=== PATIENT | male | born 1980 | race Caucasian/White ===

== ENCOUNTER 2018-10-31 09:03 | Day surgery (SDC) | payer MEDICAID ==
--- NOTE | 2018-10-24 10:28 | RADIOLOGY REPORT (SQ) ---
EXAM DESCRIPTION: CHEST PA/LATERAL COMPLETED DATE/TIME: 10/24/2018 10:16 am REASON FOR STUDY: PRE-OP COMPARISON: 04/25/2013. EXAM PARAMETERS: NUMBER OF VIEWS: two views TECHNIQUE: Digital Frontal and Lateral radiographic views of the chest acquired. RADIATION DOSE: NA LIMITATIONS: none FINDINGS: LUNGS AND PLEURA: No opacities, masses or pneumothorax. No pleural effusion. MEDIASTINUM AND HILAR STRUCTURES: No masses or contour abnormalities. HEART AND VASCULAR STRUCTURES: Heart normal size. No evidence for failure. BONES: No acute findings. HARDWARE: None in the chest. OTHER: No other significant finding. IMPRESSION: NO SIGNIFICANT RADIOGRAPHIC FINDING IN THE CHEST. TECHNICAL DOCUMENTATION: JOB ID: [id number] [employer]- All Rights Reserved Reading location - IP/workstation name: [email or web address]
[2018-10-24 10:34] LABS: BLOOD UREA NITROGEN 15 mg/dL (7-20); CALCIUM 8.7 mg/dL (8.4-10.2); GLUCOSE 162 mg/dL (75-110); POTASSIUM 3.7 mmol/L (3.6-5.0)
[2018-10-24 10:35] LABS: APPEARANCE,URINE CLEAR; BILIRUBIN,URINE NEGATIVE (NEGATIVE); COLOR,URINE YELLOW; GLUCOSE, URINE NEGATIVE (NEGATIVE); KETONES,URINE NEGATIVE (NEGATIVE); LEUKOCYTE ESTERASE,URINE NEGATIVE (NEGATIVE); NITRITE,URINE NEGATIVE (NEGATIVE); PROTEIN,URINE NEGATIVE (NEGATIVE); URINE SPECIFIC GRAVITY 1.023; UROBILINOGEN,URINE NEGATIVE mg/dL (<2.0)
[2018-10-24 10:39] LABS: ANION GAP 5 (5-19); CARBON DIOXIDE 39 mmol/L (22-30); CHLORIDE 97 mmol/L (98-107); SODIUM 140.6 mmol/L (137-145)
[2018-10-24 10:40] LABS: HEMATOCRIT 41.3 % (37.9-51.0); HEMOGLOBIN 14.1 g/dL (13.5-17.0); MEAN CORPUSCULAR HGB CONC 34.1 g/dL (32.0-36.0); MEAN CORPUSCULAR VOLUME 91 fl (80-97); PLATELET COUNT 235 10^3/uL (150-450); RED BLOOD COUNT 4.55 10^6/uL (4.35-5.55); RED CELL DISTRIBUTION WIDTH 13.2 % (11.5-14.0)
--- NOTE | 2018-10-24 13:06 | EKG REPORT ---
SEVERITY:- NORMAL ECG - SINUS RHYTHM : Confirmed by: Efrain Back MD 24-Oct-2018 13:06:02
[~2018-10-31 09:03] MED LIST: CEFAZOLIN SODIUM 2 GM in DEXTROSE 5%-WATER 100 ML IV PRN; LACTATED RINGERS 1000 ML IV PRN; LIDOCAINE 0.5% INJ-PF (5 MG/ML) 50 ML SDV SUBCUT PRN
[2018-10-31] MEDS ORDERED: ALBUTEROL SULFATE 0.083% NEB 2.5 MG/3 ML AMPUL NEB ONE ×2 (10:16→12:35)
[2018-10-31] MEDS ORDERED: GLYCOPYRROLATE 1 MG/5 ML SYRINGE ONE (11:34)
[2018-10-31] MEDS ORDERED: SUCCINYLCHOLINE CHLORIDE INJ 200 MG/10 ML VIAL ONE (11:34)
[2018-10-31] MEDS ORDERED: ONDANSETRON HCL INJ/PF 4 MG/2 ML SDV ONE ×2 (11:40→13:48)
[2018-10-31] MEDS ORDERED: FENTANYL CITRATE INJ/PF 100 MCG/2 ML AMPUL ONE (11:40)
[2018-10-31] MEDS ORDERED: MIDAZOLAM 2 MG/2 ML INJ ONE (11:40)
[2018-10-31] MEDS ORDERED: PROPOFOL INJ 200 MG/20 ML VIAL IV ONE (11:41)
[2018-10-31] MEDS ORDERED: ACETAMINOPHEN 1,000 MG/100 ML RTUPB IV ONE (11:41)
[2018-10-31] MEDS ORDERED: BUPIVACAINE HCL 0.5 % INJ/PF 30 ML SDV ONE (11:46)
[2018-10-31] MEDS ORDERED: SCOPOLAMINE HYDROBROMIDE 1.5 MG PATCH.TD72 TD ONE (12:31)
[2018-10-31] MEDS ORDERED: SCOPOLAMINE HYDROBROMIDE 1.5 MG PATCH.TD72 ONE ×2 (12:33→13:48)
[2018-10-31] MEDS ORDERED: PROMETHAZINE HCL INJ 25 MG/1 ML VIAL IV PRN ×2 (12:51)
[2018-10-31] MEDS ORDERED: OXYCODONE-ACETAMINOPHEN 5-325 MG TABLET PO PRN ×4 (12:51→13:43)
[2018-10-31] MEDS ORDERED: MEPERIDINE HCL/PF INJ 25 MG/1 ML DISP.SYRIN IV PRN (12:51)
[2018-10-31] MEDS ORDERED: FENTANYL CITRATE INJ/PF 100 MCG/2 ML AMPUL IV PRN ×3 (12:51)
[2018-10-31] MEDS ORDERED: DIPHENHYDRAMINE HCL 50 MG/ML VIAL IV PRN (12:51)
[2018-10-31] MEDS ORDERED: MORPHINE SULFATE 10 MG/ML INJ IV PRN (12:51)
--- NOTE | 2018-10-31 13:22 | Operative Report ---
Operative Report DATE OF SURGERY: 10/31/18 PREOPERATIVE DIAGNOSIS: Right knee lateral meniscus tear with para meniscal cyst POSTOPERATIVE DIAGNOSIS: Same OPERATION: Right knee arthroscopic partial lateral meniscectomy and decompression. parameniscal cyst SURGEON: TERESA CHAPPELL ANESTHESIA: GA TISSUE REMOVED OR ALTERED: meniscal shavings COMPLICATIONS: none ESTIMATED BLOOD LOSS: 10mL INTRAOPERATIVE FINDINGS: as above PROCEDURE: Patient was brought to the operating room and successfully induced and intubated in a the supine position. Once the tube was secured the right lower extremity thigh tourniquet was applied and the left lower extremity was prepped and draped in a normal surgical fashion. Timeout was done identifying the left knee has a correct site. The extremity was held elevated for a couple minutes and then tourniquet was inflated at 300 mmHg 0.5% of Marcaine was injected into the anticipated portal sites. 11 blade was used to establish the anterolateral portal. Scope was introduced and the capsule was distended with sterile saline solution. Under direct visualization the anteromedial portal sites was established first by applying a spinal needle and then established with the 11 blade. Probe was introduced and a diagnostic scope was done. Upon visuali zation of the patellofemoral joint patient had pristine patellofemoral compartment with no fissuring of the cartilage. The leg was bent at 90 degrees and the scope was introduced to the medial compartment and the inspection showed intact meniscus as well as the articular cartilage of the medial femoral condyle and medial tibial plateau. Inspection of the notch showed intact ACL and PCL. Placed the leg in a [id number] and then was opened up the lateral compartment for visualization of the tear of the lateral meniscus. This was able to be resected using a 4.0 mm shaver and meniscal biters. Once I was satisfied with the resection is able to then place a probe and release what I believe was the para meniscal cysts which showed the synovial fluid. Once the lateral meniscus was then resected to a stable construct with no loosened fluid from the knee was removed. The 2 portal sites were closed with 3-0 nylon and the tourniquet was let down at 40 minutes. Extremity was cleaned and Xeroform 4 x 4 dressing was applied followed by soft roll and an Luc bandage. Drapes were removed and the patient was successfully extubated and sent to PACU in stable condition.
--- NOTE | 2018-10-31 13:37 | Discharge Summary ---
Discharge Summary (SDC) - Discharge Final Diagnosis: Right knee partial lateral meniscectomy Date of Surgery: 10/31/18 Discharge Date: 10/31/18 Condition: Good Treatment or Instructions: Patient instructed to follow up in 10-14 days. Patient instructed to keep dressing dry clean and intact for 4 days and then allowed to remove. At that point patient can shower and apply Band-Aids as needed. Patient can weight-bear as tolerated and do range of motion exercises as tolerated. Crutches for support and safety. Can wean crutches once stable on his feet. Patient instructed to call the office if patient develops fevers chills redness and drainage from the surgical sites. Prescriptions: Oxycodone HCl/Acetaminophen [Percocet 5-325 mg Tablet] 1 - 2 tab PO ASDIR PRN #40 tablet PRN Reason: Referrals: ADIS GUADALUPE PA-C [Primary Care Provider] - Discharge Diet: As Tolerated Respiratory Treatments at Home: Deep Breathing/Coughing Discharge Activity: Keep Legs Elevated, No Lifting/Push/Pulling, Slowly Increase Activity, Walk Frequently Home Care Assistance: None Needed Adaptive Devices on Discharge: Axillary Crutches Report the Following to Your Physician Immediately: Shortness of Breath, Vomiting, Increase in Pain, Fever over 101 Degrees, Unusual Bleeding, Redness, Swelling, Warmth, Increased Soreness, Drainage-Yellow, Drainage-Quick, Drainage- Green, Drainage-Foul Smelling
[2018-10-31] MEDS ORDERED: OXYCODONE-ACETAMINOPHEN 5-325 MG TABLET ONE (14:32)
[2018-10-31 16:14] VITALS: BP 135/91
== END 2018-10-31 15:25 | disposition home or self-care (01) ==
LOC: OROUT 09:03
PROVIDERS: ATTEND Orthopaedic Surgery
DX: S83.241A Other tear of medial meniscus, current injury, right knee, initial encounter (principal); Y04.2XXA Assault by strike against or bumped into by another person, initial encounter; M25.861 Other specified joint disorders, right knee; M25.561 Pain in right knee; F17.210 Nicotine dependence, cigarettes, uncomplicated; J44.9 Chronic obstructive pulmonary disease, unspecified; I20.9 Angina pectoris, unspecified; K21.9 Gastro-esophageal reflux disease without esophagitis; R06.02 Shortness of breath; Z79.1 Long term (current) use of non-steroidal anti-inflammatories (NSAID)
CPT/HCPCS: 93005; 36415; 85027; 80048; 81001; 71046; 93010; 94640; 29881; J2250; J3490 ×3; J0690; J3010; J0330; J2405; J2704; J0131; 1400

== ENCOUNTER 2019-11-16 10:58 | Emergency (ER) | payer MEDICAID ==
[2019-11-16] MEDS ORDERED: LIDOCAINE 2% VISCOUS SOLN 15 ML UDCUP PO ONE (11:47)
[2019-11-16] MEDS ORDERED: MAG HYDROX/AL HYDROX/SIMETH SUSP 30 ML UDCUP PO ONE (11:47)
[2019-11-16] MEDS ORDERED: METOCLOPRAMIDE HCL ORAL SOLN 10 MG/10 ML UDCUP PO ONE (11:47)
--- NOTE | 2019-11-16 11:52 | ER Document Report ---
HPI - HPI Time Seen by Provider: 11/16/19 11:38 Pain Level: 0 Notes: 39-year-old male patient presented emergency department with foreign body sensation behind his tongue near his throat. He states he ate a piece of pizza crust last night and he thinks it got stuck. Patient also reports cough and congestion although he states he has a history of COPD. Denies any fevers, nausea, vomiting or diarrhea. Past Medical History - General Information source: Patient - Social History Smoking Status: Current Every Day Smoker Chew tobacco use (# tins/day): No Frequency of alcohol use: Occasional Drug Abuse: Marijuana Family History: Other - UNABLE TO OBTAIN Patient has suicidal ideation: No Patient has homicidal ideation: No - Past Medical History Cardiac Medical History: Denies: Hx Coronary Artery Disease, Hx Heart Attack, Hx Hypertension Pulmonary Medical History: Reports: Hx Asthma - inhaler, Hx Bronchitis Denies: Hx COPD, Hx Pneumonia Neurological Medical History: Denies: Hx Cerebrovascular Accident, Hx Seizures Musculoskeletal Medical History: Denies Hx Arthritis Infectious Medical History: Denies: Hx MRSA Past Surgical History: Reports: Hx Tonsillectomy - Immunizations Hx Diphtheria, Pertussis, Tetanus Vaccination: Yes Vertical Provider Document - CONSTITUTIONAL Notes: PHYSICAL EXAMINATION: GENERAL: Well-appearing, well-nourished and in no acute distress. HEAD: Atraumatic, normocephalic. EYES: Pupils equal round extraocular movements intact, conjunctiva are normal. ENT: Nares patent, oropharynx unremarkable, no erythema, no obvious abrasion noted. NECK: Normal range of motion LUNGS: No respiratory distress Musculoskeletal: Normal range of motion NEUROLOGICAL: Normal speech, normal gait. PSYCH: Normal mood, normal affect. SKIN: Warm, Dry, normal turgor, no rashes or lesions noted. - INFECTION CONTROL TRAVEL OUTSIDE OF THE [place] IN LAST 30 DAYS: No Course - Re-evaluation Re-evalutation: Patient appears well, nontoxic, speaking in full and complete sentences. No acute distress noted. Swallowing without difficulty. Patient given GI cocktail, reports feels improved. Patient declined offer of chest x-ray for his persistent cough. Patient will follow-up with his primary care team. Discharge - Discharge Clinical Impression: Sensation of foreign body in esophagus Condition: Stable Disposition: HOME, SELF-CARE Additional Instructions: Please call the referral numbers that I have given you as needed. Return to the emergency department for any new or worsening symptoms. Referrals: MARIA LUISA SARMIENTO DO [ASSOCIATE] - Follow up as needed [facility] [Provider Group] - Follow up as needed
== END 2019-11-16 12:00 | disposition home or self-care (01) ==
LOC: ER 10:58
DX: R09.89 Other specified symptoms and signs involving the circulatory and respiratory systems (principal); F17.200 Nicotine dependence, unspecified, uncomplicated
CPT/HCPCS: 99282; J3490 ×3